=== PATIENT | female | born 1985 | race Caucasian/White ===

== ENCOUNTER 2020-07-19 09:10 | Inpatient (IN) | payer MEDICAID, SELFPAY ==
[2020-07-19] VITALS (17 sets, daily range): BP systolic 85–112; BP diastolic 32–90; PULSE 57–86; RESP 16–18; TEMP 36.1–37.1; O2SAT 95–100; BMI 36.2
[2020-07-19] MEDS: Lactated Ringers 1,000 ML 999 ML IV (10:15)
[2020-07-19] MEDS: Acetaminophen 500 MG Tablet 1000 MG PO ×3 (10:19→22:32)
[2020-07-19 10:30] LABS: Amphetamine Urine VISTA NEGATIVE (<1000 ng/mL); Barbiturate Urine VISTA NEGATIVE (< 200 ng/mL); Benzodiazepine Urine VISTA NEGATIVE (< 200 ng/mL); Cocaine Urine VISTA NEGATIVE (< 300 ng/mL); Ecstacy Urine VISTA NEGATIVE (< 500 ng/mL); Methadone Urine VISTA NEGATIVE (< 300 ng/mL); PCP Urine VISTA NEGATIVE (< 25 ng/mL); THC Urine VISTA NEGATIVE (< 50 ng/mL); Vista UDS pH Range 6
[2020-07-19 10:38] LABS: Absolute Neutrophil Count 5.8 X10^3/uL (2.0-7.7); Basophil# 0.03 X10^3/uL; Basophil% 0.3 % (0-1); Eosinophil# 0.14 X10^3/uL; Eosinophils% 1.4 % (0-5); Hematocrit 35.4 % (37-47); Hemoglobin 11.5 g/dL (12.0-15.0); Lymphocyte % 32.9 % (19-41); Mean Corp Hgb Conc 32.5 g/dL (32-36); Mean Corpuscular Hgb 29.3 pg (27.0-32.0); Mean Corpuscular Volume 90.3 fL (81-99); Mean Platelet Vol. 10.2 fl (6.2-12.0); Monocyte# 0.73 X10^3/uL; Monocyte% 7.3 % (0-10); NRBC Flagged by Analyzer 0 % (0-5); Neutrophil # 5.78 X10^3/uL (2.7-7.7); Neutrophil % 57.7 % (47-70); Platelet Count 167 K/mm3 (150-450); RBC Distribution Width CV 13.5 % (11.6-14.6); Red Blood Count 3.92 M/mm3 (4.2-5.4)
[2020-07-19 10:40] LABS: Bedside Glucose 98 mg/dL (70-110)
[2020-07-19] MEDS: Lactated Ringers 1,000 ML 500 ML IV (11:23)
[2020-07-19] MEDS: Sodium Citrate/Citric Acid 30 ML UDC PO (11:50)
[2020-07-19] MEDS: Cefazolin 2 GM in 0.9% Normal Saline 100 ML IV (11:50)
--- NOTE | 2020-07-19 12:05 | HP.PCM_ITS ---
History Date of Admission: 07/19/20 Final RYLEY: 08/09/20 Final RYLEY Source: US <20 weeks Gestational age: 37 Weeks and 0 Days History of this : This is a 34 year-old, presents for repeat c/s. Patient's has been complicated by substance abuse disorder, she is currently in a treatment program. In addition, she has a history of 2 previous sections. 1 of them was a 29-week section for a second twin that was confirmed to be a classical incision. He is also been diagnosed as hepatitis C positive. Patient states she has a history of placental abruption with 1 of her last pregnancies. She also states she has a history of preeclampsia with a previous . She has been smoking during the . She was recently diagnosed with diet-controlled gestational diabetes, but took her 3-hour Glucola very late. She may have had unmonitored gestational diabetes earlier in the .. Allergies No Known Allergies Allergy (Verified 07/19/20 09:40) Home Medications: Home Medications Pnv No.95/Ferrous Fum/Folic AC [ Caplet] 1 ea PO 07/19/20 Smoking Status: Current every day smoker Substance Use Type: Amphetamines Number of Fetus(es): 1 History Past Pregnancies: Past Pregnancies Delivery Date Name GA/ Weeks Outcome Route Wt Infant Sex Labor Length Anesthesia Delivery Location Provider FOB Expected Infant Delivery Method: Scheduled Section Review of Systems Constitutional: Denies: Chills, Fever Eyes: Denies: Blurred vision Cardiovascular: Denies: Chest Pain Respiratory: Denies: Cough Genitourinary: Denies: Dysuria Skin: Denies: Rash Hematologic/ Lymphatic: Denies: Easy Bruising, Easy Bleeding Physical Exam Vitals: Vital Signs Temp Pulse Resp BP Pulse Ox 98.5 F 81 16 108/50 L 95 07/19/20 11:03 07/19/20 11:03 07/19/20 11:03 07/19/20 11:03 07/19/20 11:03 General: Alert, Cooperative, No apparent distress Cardiovascular: Regular rate Lungs: Normal air movement Abdomen: Soft, Non Tender, Non-Distended, Gravid, Appropriate for Gestational Age Extremities:: Other - 2+ edema Neurological: Neuro grossly intact, Slurred Speech MARINE SERVICES TECHNICIAN: Normal external genitalia Estimated gestational size: Appropriate for gestational size Presentation: Cephalic Assessment/Plan This is a 34 year-old, 34-year-old high risk multigravida female for repeat section and bilateral salpingectomy. Risk benefits and alternatives to repeat section at 37 weeks and been discussed with patient, her questions were answered her satisfaction she desires to proceed. She does not desire future fertility and has requested a sterilization. Risk benefits and alternatives to this including permanency irreversibility and risk of failure and regret were discussed with patient, her questions were answered to her satisfaction she desired to proceed. Patient has multiple social issues, and has been in a treatment program for substance abuse disorder. Also known to be hepatitis C positive. Unmonitored gestational diabetes, diet controlled.
--- NOTE | 2020-07-19 12:23 | FALS_PTH ---
PATIENT: EROS LYNN LOC: [facility] U#:[id number] AGE/SX: 34/F ROOM: WP005 RE07/19/[address]: Dr. Iram Casper MD : [id number] BED: 1 DIS: 07/21/2020 SPEC #: [id number] RECD: 07/20/20 08:57 STATUS: LOLLY REMelissa #: [id number] JERILYN: 07/19/20 12:[address]: Iram Casper DEPT: SURGICAL PATHOLOGY RECD BY: Cody Aceves ENTERED: 07/20/20 08:58 SP TYPE: FALL TUBES OTHR DR: No Primary Care Phys Tissues: Fallopian tube Procedures: Surgery Specimen Level II HEADER OPERATION: Tubal ligation PRE-OP DIAGNOSIS: Sterilization TISSUE SUBMITTED: Fallopian tubes, suture in right tube MICROSCOPIC DIAGNOSIS Bilateral fallopian tubes, salpingectomy: Bilateral fallopian tubes including fimbrial ends, no pathologic diagnosis. BLUE:toney 07/21/20 MICROSCOPIC DESCRIPTION Slides are reviewed. GROSS DESCRIPTION Received in fixative is one container labeled with the patient's name and designated bilateral fallopian tubes, suture in right fallopian tube. The specimen consists of bilateral fallopian tubes including fimbrial ends. The right fallopian tube measures 6 cm in length and up to 1 cm in diameter. The left fallopian tube measures 4 cm in length and up to 1 cm in diameter. Sections reveal unremarkable cut surfaces. Also present in the container is a detached separate piece of fallopian tube measuring 1 cm in length and 0.7 cm in diameter. Pinion And Wheel Truer sections are submitted in two cassettes as follows: 1 - right fallopian tube, 2 - left fallopian tube and detached piece of fallopian tube. / SJ:toney 07/20/20 TC:4 CPT: 68563 x2
--- NOTE | 2020-07-19 12:59 | PCM.OPRPT ---
Delivery Classification: Scheduled Final RYLEY: 08/09/20 Final RYLEY Source: US <20 weeks Gestational age: 37 Weeks and 0 Days plant operator control room operator: Tyson Rush Type of Anesthesia:: Spinal Special Medications: duramorph Implants Used: none Date of Procedure: 07/19/20 Pre-Operative Diagnosis: previous classical c/s, 37 weeks, sterilization request Post-Operative Diagnosis: same Indications for : Repeat Elective , Desires elective sterilization Description of Procedure: The patient was taken to the operating room. She was prepped and draped in the dorsal supine position with a leftward tilt. A Pfannenstiel skin incision was made approximately 2 cm above the symphysis pubis and carried through to underlying layer fascia with the scalpel. The fascia was incised incised in the midline and extended laterally with the Sommer scissors. The fascia was dissected off the rectus muscles with blunt and sharp dissection. The rectus muscles were in the midline and the peritoneum was entered bluntly. The peritoneal incision was stretched and the bladder blade was placed. The uterine incision was made in a low transverse fashion with the scalpel and extended superiorly and inferiorly with blunt dissection. The amniotic membranes were ruptured bluntly and clear amniotic fluid returned. The infant's head was brought to the incision in the flexed position and delivered without difficulty. The remainder of the was delivered with gentle traction and fundal pressure in the standard fashion. The mouth and nares were bulb suctioned. The cord was clamped and cut as the infant was stimulated. Cord clamping was delayed. The infant was handed off to the waiting nursing staff. The placenta was delivered with fundal massage and gentle traction in the standard fashion. The uterus was exteriorized and cleared of all clots and debris. The cervix was dilated with a ring forcep. Was a small extension of the uterine incision in the midline down towards the cervix. This was approximately 2 cm. You can tell there was a defect in her uterus from her previous classical section. The bladder flap was then dissected down with Metzenbaum scissors and sharp dissection. The uterine incision was closed with #1 Vicryl in a running locked fashion. Several [id number]'s of the same suture were used to close the defect and to obtain hemostasis. The incision was examined and was found to be hemostatic. The uterus was placed back into the peritoneal cavity and hemostasis was again confirmed. The right fallopian tube was identified and followed out to the fimbriated end. The LigaSure device was then used to clamp, seal and transect the antimesenteric portion of the tube to the cornual insertion of the tube. The tube was amputated from the uterus with the LigaSure device. Hemostasis of the pedicles was assured. The same procedure was performed on the contralateral side. Uterine incision was once more examined and found to be hemostatic. Some Dipak was placed over the uterine incision. The rectus muscles were examined and any bleeding was Bovie cauterized. The parietal peritoneum and rectus muscles were closed en bloc with an 0 Vicryl running suture. The surgical teams outer gloves were then changed. The rectus fascia was examined and any bleeding was Bovie cauterized and the rectus fascia was closed with 0 PDS suture in a running standard fashion. The subcutaneous tissue was examining and any bleeding was Bovie cauterized. The subcutaneous tissue was reapproximated with 3-0 Vicryl suture. The skin was closed in a subcuticular fashion by the MOTION STUDY ENGINEER with me present in the labor and delivery suite. I performed the remainder of the procedure with assistance. All sponge, lap, and needle counts were correct. The patient was taken to her room for recovery in a stable condition. Amniotic Membrane Rupture Type: Artificial Amniotic Fluid Description: Clear Placenta Disposition: [facility] Drain: Arroyo to straight drain Cord Entanglement: None Cord Vessel Description: 3 Vessels Esitmated Blood Loss (ml): 800 Gender: Female (1 minute): 8 (5 minute): 9 Antibiotic Given: Ancef 2 grams IV x1 Complications: None - Admit VTE Documentation VTE Present on Admission: No VTE Mechan Device Prophylaxis: SCD's VTE Pharm Prophylaxis ordered?: Yes
[2020-07-19] MEDS: Oxytocin 30 units/NS 500 ml 30 UNITS/500 ML IV.SOLN 167 UNITS IV (13:25)
[2020-07-19 15:49] LABS: Pathology Specimen OB SEE PATHOLOGY REPORT
[2020-07-19] MEDS: Lactated Ringers 1,000 ML 100 ML IV (16:25)
--- NOTE | 2020-07-19 17:22 | CASEMGMT ---
Social Work Updated by nursing team on social work referral for Mother of baby (MOB) with history of substance abuse. Per nursing staff patient does not have custody of other children. Nursing staff also reporting that patient is currently in a substance abuse treatment program. Per chart review patient with Meth use in 1st trimester. Patient also with late care (15weeks). Social Work was notified by Bell, with [facility] to be following patient and requesting to be notified when was delivered. Telephone call to amalia Luu left with information to contact social economist on unit. Social Work will continue to follow to complete full assessment and make referrals as indicated. Hans BARRAGAN, BARNDYN
[2020-07-19] MEDS: Ketorolac 30 MG/ML Syringe IV ×2 (17:55→23:57)
[2020-07-19] MEDS: 0.9% Saline Lock 10 ML Syringe IV (23:57)
[2020-07-20] MEDS: Acetaminophen 500 MG Tablet 1000 MG PO ×3 (04:36→17:51)
[2020-07-20 04:40] VITALS: BP 101/55; PULSE 72; RESP 16; TEMP 36.8; O2SAT 97
[2020-07-20 05:16] LABS: Hemoglobin 10.8 g/dL (12.0-15.0); Mean Corp Hgb Conc 32.7 g/dL (32-36); Mean Corpuscular Hgb 29.5 pg (27.0-32.0); Mean Corpuscular Volume 90.2 fL (81-99); Platelet Count 142 K/mm3 (150-450); RBC Distribution Width CV 13.2 % (11.6-14.6); RBC Distribution Width SD 43.2 fl (35.1-43.9); Red Blood Count 3.66 M/mm3 (4.2-5.4); White Blood Count 10.8 K/mm3 (4.4-11.0)
[2020-07-20 05:36] LABS: Bedside Glucose 125 mg/dL (70-110)
[2020-07-20] MEDS: Ketorolac 30 MG/ML Syringe IV ×2 (05:49→12:17)
[2020-07-20] MEDS: 0.9% Saline Lock 10 ML Syringe IV ×2 (05:50→12:17)
--- NOTE | 2020-07-20 05:51 | PN.OBGYN_ITS ---
Subjective: pain well controlled, average lochia. No N/V - Physical Exam Vitals/I&O's: Vital Signs Temp Pulse Resp BP Pulse Ox 98.2 F 72 16 101/55 L 97 07/20/20 04:40 07/20/20 04:40 07/20/20 04:40 07/20/20 04:40 07/20/20 04:40 Oxygen Delivery Method Room Air Weight: 108.2 kg Body Mass Index (BMI) 36.2 Intake and Output for Last 24 Hours 07/18/20 07/19/20 07/20/20 23:59 23:59 23:59 Intake Total 4060 / 4060 1000 / 1000 Output Total 600 / 600 400 / 400 Balance 3460 / 3460 600 / 600 General: Alert, Cooperative, No apparent distress Abdomen: Soft, Non-Distended, Tender - mildly Extremities: Edema - 1= Skin: Incision - bandage is clean, dry and intact Laboratory Results 07/19/20 09:55: Urine Opiates Screen NEGATIVE, Urine Methadone Screen NEGATIVE, Ur Barbiturates Screen NEGATIVE, Ur Phencyclidine Scrn NEGATIVE, Ur Amphetamines Screen NEGATIVE, U Methamphetamin-MDMA NEGATIVE, U Benzodiazepines Scrn NEGATIVE, Urine Cocaine Screen NEGATIVE, U Cannabinoids Screen NEGATIVE, Ur Drug Screen Comment 07/19/20 10:15: WBC 10.0, RBC 3.92 L, Hgb 11.5 L, Hct 35.4 L, MCV 90.3, MCH 29.3, MCHC 32.5, RDW Std Deviation 44.0 H, RDW Coeff of Judy 13.5, Plt Count 167, MPV 10.2, Immature Gran % (Auto) 0.400, Neut % (Auto) 57.7, Lymph % (Auto) 32.9, Yolo % (Auto) 7.3, Eos % (Auto) 1.4, Baso % (Auto) 0.3, Absolute Neuts (auto) 5.8, Absolute Lymphs (auto) 3.30, Nucleated RBC % 0 07/19/20 10:15: Blood Type O POSITIVE, Antibody Screen NEGATIVE 07/19/20 10:29: POC Glucose 98 07/20/20 05:11: WBC 10.8, RBC 3.66 L, Hgb 10.8 L, Hct 33.0 L, MCV 90.2, MCH 29.5, MCHC 32.7, RDW Std Deviation 43.2, RDW Coeff of Judy 13.2, Plt Count 142 L, MPV 10.0 07/20/20 05:23: POC Glucose 125 H Current Medications Acetaminophen (Tylenol) 1,000 mg PO Q6H [facility] Last Admin: 07/20/20 04:36 Dose: 1,000 mg Documented by: Bisacodyl (Dulcolax) 10 mg RECTAL UD PRN PRN Reason: If no BM Diphenhydramine HCl (Benadryl) 25 mg PO Q6H PRN PRN PRN Reason: ITCHING Stop: 07/20/20 13:05 Enoxaparin Sodium (Lovenox) 40 mg SC DAILY [facility] Hydrocortisone (Hytone) 1 applic TOPICAL TID PRN PRN; Protocol PRN Reason: Discomfort Naloxone HCl 4 mg/ Dextrose 504 mls @ 0 mls/hr IV .Q0M PRN; Protocol PRN Reason: To maintain Resp. rate >10 Lactated Ringer's () 1,000 mls @ 100 mls/hr IV .Q10H [facility] Last Infusion: 07/20/20 04:36 Dose: Infused Documented by: Ketorolac Tromethamine (Toradol (Bkc)) 30 mg IV Q6 [facility] Stop: 07/20/20 12:01 Last Admin: 07/20/20 05:49 Dose: 30 mg Documented by: Methylergonovine Maleate (Methergine) 0.2 mg IM X1 PRN PRN Reason: Uterine Atony Naloxone HCl (Narcan) 0.02 mg IV Q1M PRN PRN Reason: RR< 10 AND PT UNRESPONSIVE Naproxen (Naprosyn) 500 mg PO Q8H [facility] Ondansetron HCl (Zofran) 4 mg IV Q4H PRN PRN PRN Reason: Nausea Prochlorperazine Edisylate (Compazine Iv) 10 mg IV Q6H PRN PRN PRN Reason: NAUSEA Senna/Docusate Sodium (Senokot-S, Myra-Colace) 0 tablet PO DAILY [facility] Simethicone (Mylicon) 80 mg PO PCHS PRN PRN Reason: Indigestion/stomach pain Sodium Chloride () 5 - 15 ml IV UD PRN PRN Reason: SALINE FLUSH Last Admin: 07/20/20 05:50 Dose: 10 ml Documented by: Medical Necessity - Tobacco Use Smoking Status: Current every day smoker Assessment/Plan POD#1 s/p repeat c/s and bilateral salpingectomy is and doing well routine care
[2020-07-20 09:10] VITALS: BP 100/55; PULSE 59; RESP 14; TEMP 36.5
[2020-07-20] MEDS: Enoxaparin 40 MG/0.4 ML Syringe SC (11:20)
[2020-07-20] MEDS: Senna/Docusate Sodium 1 Tablet PO (11:20)
[2020-07-20 12:55] VITALS: BP 101/45; PULSE 68; RESP 14; TEMP 36.7
--- NOTE | 2020-07-20 15:15 | CASEMGMT ---
Social Work Assessment Labor and Delivery Unit Patient Address: [address] [place] [address]. [address] [place] [id number] Phone number: [phone]; [phone] Date of Referral: 07/19/2020 Time of Referral: 1017 Referred By: Dr. Iram Casper Date of Intervention: 07/20/2020 Time of Intervention: 1515 Reason for Referral: Maternal history of drug abuse; and treatment program History obtained from: Medical records and mother of baby (MOB) Thu Pardo Household composition: ARIANNA reports to live in her own apartment, since May 2020. MOB plans to take infant to this home. Patient's parent/guardian status: ARIANNA is a 34-year-old single female. Father of baby (FOB) is reported to be a Cole Russell, date of 08-15-1989. FOB was present for delivery of baby, but is currently residing in a community controlled nursing home house. No reports of any domestic violence issues with FOB. MOB and FOB are reported as together and involved. ARIANNA has 6 living children (one ), now after delivery of baby. Per medical record minor children were born in 12/04/2007, 12/20/2008, 01/15/2012, 11/18/2017, 05/05/2018 (Renetta), and baby Kylah Russell who was born on 07/19/2020. MOB reports that all of her children with the exception of Kylah were removed from [facility] from the hospital. ARIANNA admits to active drug use with each of her prior pregnancies. MOB reports all children were born in [place] with the exception of Renetta and Kylah. Medical History: ARIANNA with 6 pregnancies and 6 deliveries. One delivery included a set of twins, 2016, with with one child expiring after . living. Per care record these twins were born at 21 weeks gestation. MOB reports history of placental abruption with a prior . For this care started at 15 weeks gestation. ARIANNA did present to [facility] in [place], around 13 weeks and had an ultrasound. ARIANNA has a history of gestational diabetes, hepatitis C, and preeclampsia. Kylah was born weighing 7 pounds 4 ounces. Apgars 8 and 9 at 1 and 5 minutes of life. Delivery via repeat . Educational Status: ARIANNA graduated from high school, and per record has some college classes completed. MOB is able to read, write, and understand what is read. Financial Status: Specifics about financial situation not discussed. MOB endorses assistance from community agencies. Supplies: MOB reports to have all needed supplies to get started to take care of this baby. MOB reports to have a crib, pack and play, car seat, clothing, diapers, and wipes. At this time MOB is planning on breast-feeding baby. Childcare/Caregiver(s): MOB plans to be primary caregiver of this baby. Transportation: MOB does not currently have her license. Reports to rely on local J[employer], and insurance, for transportation. Programs/Agencies Involved: ARIANNA is connected with her local job and family services for medical and food. Reports to be working with [employer] me [employer]. Reports to be working with a adult protective caseworker out of [facility] program. Reports to be active with [facility] for both individual counseling and intensive outpatient program 3 times a week. MOB reports to be on the wait list for parenting classes through [facility]. MOB reports to have [facility]. Children Services/Legal Issues: No disclosure of medical history. MOB reports history of children services for her other children. Reports [facility] children services involvement after Renetta was born, which eventually resulted in loss of custody. MOB denies any active case with any children services agency. Behavioral Health Issues: Mental Health History: It is reported that ARIANNA has a history of depression, anxiety, and depression. Chart indicates ARIANNA has history of taking Seroquel when not . Per care record, Lexapro and Vistaril were discussed as possibilities during the . During this assessment MOB denies use of any type of medication for her mental health during this . Chart indicates a history of 3 past suicide attempts. And history of homicidal ideations in the past which were drug-induced. Substance Use History: It is reported that ARIANNA has a substance use history for the last 13 years. MOB drug of choice is reported to be methamphetamines and gabapentin. It is reported however ARIANNA has a history of using heroin, cocaine, and other opiates. It is reported ARIANNA used Suboxone during her last in 2017. MOB reports to this senior medical writer she overdosed on opiates, in September 2019, and since that time has had no desire for any type of opiate usage. MOB reports she received opiate medication during Kylah's delivery, which MOB reports was not what she wanted for her delivery plan, and expresses worry now this will show up in the baby's drug screen. It is reported that ARIANNA used methamphetamines twice prior to seeking care and also used gabapentin. ARIANNA reports her sober date is 02/04/2020. ARIANNA reports she entered [facility] in [place] during this . Reports state only for short time due to various issues with other women at the home. ARIANNA reports she signed herself out, and got herself enrolled at [facility]. MOB reports believe has been doing well with this outpatient treatment program, ARIANNA reports has been in other rehab programs in the past. Family History: Record indicates MOB mother has a history of depression. Record indicates MOB father, sister, and a brother have substance use issues. Drug Screens: ARIANNA with a negative drug screen on 02/18/2020. No retesting noted until time of delivery on 07/19/2020, which was negative. Infant's urine drug screen is negative, meconium is pending. ENZO: ENZO testing not performed as no endorsement of any opiate usage during this , nor any positive drug screen drug screens indicating such. Family/Social Stressors: ARIANNA with active drug use in the first trimester, but did seek out treatment and reports a sober date of 02/04/2020. From record it appears ARIANNA left the [facility], and went to a homeless half-way where MOB was connected with a adult protective caseworker. ARIANNA has now been in her own home since May. Limited involvement by DK, who is in a community controlled nursing home house, although FOB was at the hospital for delivery. Maternal history of mental health, not currently treated with medication, although ARIANNA reports counseling and such has been working fine. MOB expressing distress at this time with the knowledge that children services is to be called. Limited support system appearing to be in place via family and friends, although MOB reports good support from engagement with community social service agencies, and sober supports. Support Systems: It is reported that DK is a support and was present on day of delivery to help with the baby. MOB reports to have a sober support. Reports to have counseling and case management. Depression/Shaken Baby/Safe Sleeping information will be provided prior to discharge. ASSESSMENT: Met with MOB in room and introduced to self and social work role. MOB holding the baby for the duration of social work visit, until nursing came in to do the baby's 24-hour testing. MOB cooperative with answering social work's questions. MOB reports to have needed supplies for the baby, reports has been actively working on recovery since sober date February 03, and reports intent and desire to be able to take this baby home; to parent the baby at home. Discussed with MOB need to call children services, and that intrauterine exposure to substances necessitates a referral. Did let MOB now this senior medical writer had a message from children services. Educated MOB that as both MOB and baby negative at time of delivery, uncertain what level of intervention children services would take. MOB voiced frustration, and belief that children services will remove the infant from MOB's custody as this has been the pattern with MOB's other children. MOB voicing frustration that has worked hard on sobriety, so that a removal of infant and children services involvement is unnecessary. Supportive listening provided to MOB, emotional support offered, and also discussed with MOB coping skills can use when feeling upset or overwhelmed. MOB with anxious mood, tense body posture at times, and constricted affect. MOB tearful when discussing impending children services involvement. MOB be voiced frustration and disagreement with the fact that social social and political studies professor to call children services. Near end of conversation, MOB less tearful, and apologized to this senior medical writer for MOB initial reaction, for being rude, when finding out children services to be called. Safe Plan of Care for related to substance use: MOB reports plan to continue with counseling, IOP, and using sob support system. PLAN: Plan to follow-up with MOB, to keep updated as MOB voices desire to know children services plans to come to the hospital. Plan to call [facility] children services regarding substance exposed infant as reported in the medical records. Plan to follow-up with mother of baby to provide community resource information, and have further discussion about depression. No other services requested or indicated. -SHAHZAD Armenta, YUNG *Information documented in this assessment generated with [employer] System*
--- NOTE | 2020-07-20 15:40 | CASEMGMT ---
Social Work Labor and Delivery Unit Reason for intervention: Referral to [facility] children services ([facility]), Kiley Petersen at [phone]. Summary: Phone call to [facility], and spoke with Kiley. Referral given due to reported intrauterine drug exposure to baby, prior to start of care. Reported exposure of methamphetamines and gabapentin. Brief maternal and infant histories provided. Reported concern regarding mother of baby not having custody of any of her older children, and prior involvement with [facility] asked for last child. Reported negative drug screens on record for both mother of baby and . Reported limited. Support system from family, and father of baby currently in a committed controlled care home house. Reported strengths including agencies that mother of baby has indicated to be involved with. This loan underwriter requested notification if the worker plans to come to the hospital to see mother of baby. Assessment: Referral to children services has been made and from conversation with said agency anticipate a case to be opened for an intake investigation. Plan: We will plan to follow-up with mother of baby after hearing from children services. No other services requested or indicated. -SHAHZAD Armenta, YUNG *Information documented in this note generated via [employer] system*
--- NOTE | 2020-07-20 16:30 | CASEMGMT ---
Social Work Labor and Delivery Unit Reason for intervention: Update to mother of baby (MOB) Summary: Received phone call from Kiley at [facility] ([facility] Per Dee Cao will be coming to see MOB in the morning hours of 07/21/2020. Children services agency is going to look at feasibility of a safety plan versus other alternatives. Met with MOB briefly, and updated that [facility] will be to unit on 07/21/2020 to talk with MOB. MOB accepted him from this information without issue. Thanks this filing writer for the update. Assessment: MOB be cooperative and calm during short visit with this filing writer. MOB attending today be well clinical social worker in the room. MOB did voice desire to be able to take the baby home with her. Plan: [facility] has plans to see MOB at hospital on 07/21/2020. Hospital social work to continue to follow and assist, with plans to provide MOB with home-going resources prior to discharge. Updated supervisor color paste mixing to plan to children services involvement. No other services requested or indicated. -SHAHZAD Armenta, MANAGER PHOTOGRAPHY *Information documented in this note generated via [employer] system*
[2020-07-20 16:45] VITALS: BP 113/44; PULSE 82; RESP 14; TEMP 37.1
[2020-07-20] MEDS: Naproxen 250 MG Tablet 500 MG PO (17:51)
[2020-07-20 20:55] VITALS: BP 99/48; PULSE 74; RESP 16; TEMP 36.9; O2SAT 97
--- NOTE | 2020-07-21 00:13 | NURSING ---
Patient requested formula as she feels her infant is not getting enough. latches well. Reassured patient. Patient reports infant being fussy throughout night. Patient requested pump as she feels it will help bring her milk in. Educated patient on colostrum and reviewed the option of hand expression. Patient still wanted to pump. Patient pumped, but was not able to pump any milk out. Patient then asked for formula. Reviewed benefits of . Huddle form completed.
--- NOTE | 2020-07-21 00:18 | NURSING ---
Formula provided to patient. Patient's new feeding plan is to pump and give any milk she pumps through a bottle. If patient is unable to pump milk, she will feed the infant formula. Reviewed alternative forms of feeding formula instead of a bottle, but patient chooses to feed infant with a bottle at this time.
[2020-07-21] MEDS: Acetaminophen 500 MG Tablet 1000 MG PO ×2 (01:07→07:22)
[2020-07-21] MEDS: Naproxen 250 MG Tablet 500 MG PO ×2 (02:22→09:14)
[2020-07-21 02:23] VITALS: BP 109/55; PULSE 67; RESP 18; TEMP 36.7
--- NOTE | 2020-07-21 07:18 | PN.OBGYN_ITS ---
Subjective: Patient seen at bedside. Resting comfortably. Pain is controlled with Tylenol and Motrin. Ambulating and passing flatus. Both breast and bottle feeding infant. Desires discharge home today. Objective: Dressing is dry and intact - Physical Exam Vitals/I&O's: Vital Signs Temp Pulse Resp BP Pulse Ox 98.1 F 67 18 109/55 L 97 07/21/20 02:23 07/21/20 02:23 07/21/20 02:23 07/21/20 02:23 07/20/20 20:55 Oxygen Delivery Method Room Air Weight: 238 lb 8.642 oz Body Mass Index (BMI) 36.2 Intake and Output for Last 24 Hours 07/19/20 07/20/20 07/21/20 23:59 23:59 23:59 Intake Total 4060 / 4060 1000 / 1000 Output Total 600 / 600 400 / 400 Balance 3460 / 3460 600 / 600 General: Alert, Oriented x3, Cooperative Oral: Moist Mucosa Lungs: Normal air movement Cardiovascular: Regular rate Abdomen: Soft, Non Tender Extremities: No edema Skin: No rashes Musculoskeletal: No Tenderness to Palpation of Joints or Extremities Neurological: Cranial nerves II-XII grossly intact Psych/Mental Status: Normal Affect Current Medications Acetaminophen (Tylenol) 1,000 mg PO Q6H COUNT INCLUDES THE [facility] Last Admin: 07/21/20 01:07 Dose: 1,000 mg Documented by: Bisacodyl (Dulcolax) 10 mg RECTAL UD PRN PRN Reason: If no BM Enoxaparin Sodium (Lovenox) 40 mg SC DAILY COUNT INCLUDES THE [facility] Last Admin: 07/20/20 11:20 Dose: 40 mg Documented by: Hydrocortisone (Hytone) 1 applic TOPICAL TID PRN PRN; Protocol PRN Reason: Discomfort Naloxone HCl 4 mg/ Dextrose 504 mls @ 0 mls/hr IV .Q0M PRN; Protocol PRN Reason: To maintain Resp. rate >10 Methylergonovine Maleate (Methergine) 0.2 mg IM X1 PRN PRN Reason: Uterine Atony Naloxone HCl (Narcan) 0.02 mg IV Q1M PRN PRN Reason: RR< 10 AND PT UNRESPONSIVE Naproxen (Naprosyn) 500 mg PO Q8H COUNT INCLUDES THE [facility] Last Admin: 07/21/20 02:22 Dose: 500 mg Documented by: Ondansetron HCl (Zofran) 4 mg IV Q4H PRN PRN PRN Reason: Nausea Prochlorperazine Edisylate (Compazine Iv) 10 mg IV Q6H PRN PRN PRN Reason: NAUSEA Senna/Docusate Sodium (Senokot-S, Myra-Colace) 0 tablet PO DAILY JENS[facility] Last Admin: 07/20/20 11:20 Dose: 1 tablet Documented by: Simethicone (Mylicon) 80 mg PO [facility] PRN PRN Reason: Indigestion/stomach pain Sodium Chloride () 5 - 15 ml IV UD PRN PRN Reason: SALINE FLUSH Last Admin: 07/20/20 12:17 Dose: 10 ml Documented by: Medical Necessity - Tobacco Use Smoking Status: Current every day smoker Assessment/Plan A/P Post operative repeat c/s Pain controlled Routine care Discharge home
--- NOTE | 2020-07-21 07:25 | DCINST_ITS ---
Discharge Diet: No Restrictions Additional Instructions: If you experience any of the following, contact your healthcare provider. * Bleeding that soaks a pad every hour for 2 hours * Fever 100.4 or higher * Unrelieved incision or abdominal pain * Swelling, redness, discharge or bleeding from your incision or episi otomy site * Your incision begins to separate * Problems urinating (including inability to urinate or burning while urinating). * Visual changes * Severe headache * Flu-like symptoms * Pain or redness in one of both of your breasts * Pain, warmth, tenderness or swelling in your legs, especially the calf area * Frequent nausea and vomiting * Symptoms of depression or anxiety If you experience any of the following, call 911 or go to the nearest Emergency Room. * Chest pain * Problems breathing * Seizure activity * Partial or complete paralysis of a body part, slurred speech, weakness or drooping of the face, or a sudden inability to walk or hold your balance Allergies/Adverse Reactions: Allergies No Known Allergies Allergy (Verified 07/19/20 09:40) Medications to take at Discharge Pnv No.95/Ferrous Fum/Folic AC [ Caplet] 1 ea PO 07/19/20 Follow-Up: Call to make an appointment with your doctor for an incision check in 1-2 weeks. You will also need a 6 week post- follow up appointment. Test results from this visit will be discussed in further detail at your follow- up appointment, if applicable. Primary Care Physician: Care Physician,No Primary [Primary Care Provider] -
--- NOTE | 2020-07-21 07:25 | PCM.DCCSEC ---
Discharge Diet: No Restrictions Additional Instructions: If you experience any of the following, contact your healthcare provider. Bleeding that soaks a pad every hour for 2 hours Fever 100.4 or higher Unrelieved incision or abdominal pain Swelling, redness, discharge or bleeding from your incision or episiotomy site Your incision begins to separate Problems urinating (including inability to urinate or burning while urinating). Visual changes Severe headache Flu-like symptoms Pain or redness in one of both of your breasts Pain, warmth, tenderness or swelling in your legs, especially the calf area Frequent nausea and vomiting Symptoms of depression or anxiety If you experience any of the following, call 911 or go to the nearest Emergency Room. Chest pain Problems breathing Seizure activity Partial or complete paralysis of a body part, slurred speech, weakness or drooping of the face, or a sudden inability to walk or hold your balance Allergies/Adverse Reactions: Allergies No Known Allergies Allergy (Verified 07/19/20 09:40) Medications to take at Discharge Pnv No.95/Ferrous Fum/Folic AC [ Caplet] 1 ea PO 07/19/20 Follow-Up: Call to make an appointment with your doctor for an incision check in 1-2 weeks. You will also need a 6 week post- follow up appointment. Test results from this visit will be discussed in further detail at your follow-up appointment, if applicable. Primary Care Physician: Care Physician,No Primary [Primary Care Provider] -
--- NOTE | 2020-07-21 07:26 | DS.PCM_ITS ---
Discharge Date and Diagnosis Date of Admission: 07/19/20 Date of Discharge: 07/21/20 Hospital Course and Treatment Summary of Care Provided: The patient is a 34 year old F status post repeat c/s with bilateral salpingectomy. Hospital course was uncomplicated. - Physical Exam Vitals/I&O's: Vital Signs Temp Pulse Resp BP Pulse Ox 98.1 F 67 18 109/55 L 97 07/21/20 02:23 07/21/20 02:23 07/21/20 02:23 07/21/20 02:23 07/20/20 20:55 Oxygen Delivery Method Room Air Weight: 238 lb 8.642 oz Body Mass Index (BMI) 36.2 Intake and Output for Last 24 Hours 07/19/20 07/20/20 07/21/20 23:59 23:59 23:59 Intake Total 4060 / 4060 1000 / 1000 Output Total 600 / 600 400 / 400 Balance 3460 / 3460 600 / 600 Current Medications Acetaminophen (Tylenol) 1,000 mg PO Q6H [facility] Last Admin: 07/21/20 07:22 Dose: 1,000 mg Documented by: Bisacodyl (Dulcolax) 10 mg RECTAL UD PRN PRN Reason: If no BM Enoxaparin Sodium (Lovenox) 40 mg SC DAILY [facility] Last Admin: 07/20/20 11:20 Dose: 40 mg Documented by: Hydrocortisone (Hytone) 1 applic TOPICAL TID PRN PRN; Protocol PRN Reason: Discomfort Naloxone HCl 4 mg/ Dextrose 504 mls @ 0 mls/hr IV .Q0M PRN; Protocol PRN Reason: To maintain Resp. rate >10 Methylergonovine Maleate (Methergine) 0.2 mg IM X1 PRN PRN Reason: Uterine Atony Naloxone HCl (Narcan) 0.02 mg IV Q1M PRN PRN Reason: RR< 10 AND PT UNRESPONSIVE Naproxen (Naprosyn) 500 mg PO Q8H [facility] Last Admin: 07/21/20 02:22 Dose: 500 mg Documented by: Ondansetron HCl (Zofran) 4 mg IV Q4H PRN PRN PRN Reason: Nausea Prochlorperazine Edisylate (Compazine Iv) 10 mg IV Q6H PRN PRN PRN Reason: NAUSEA Senna/Docusate Sodium (Senokot-S, Myra-Colace) 0 tablet PO DAILY [facility] Last Admin: 07/20/20 11:20 Dose: 1 tablet Documented by: Simethicone (Mylicon) 80 mg PO [facility] PRN PRN Reason: Indigestion/stomach pain Sodium Chloride () 5 - 15 ml IV UD PRN PRN Reason: SALINE FLUSH Last Admin: 07/20/20 12:17 Dose: 10 ml Documented by: Discharge Diet: No Restrictions Home Medications: Medications to take at Discharge Pnv No.95/Ferrous Fum/Folic AC [ Caplet] 1 ea PO 07/19/20 Primary Care Physician: Care Physician,No Primary [Primary Care Provider] - Medical Necessity - Tobacco Use Smoking Status: Current every day smoker Meaningful Use Info Meaningful Use Diagnoses (Choose all that apply): None applicable
[2020-07-21 09:08] VITALS: BP 92/41; PULSE 64; RESP 16; TEMP 37; O2SAT 97
[2020-07-21] MEDS: Senna/Docusate Sodium 1 Tablet PO (09:14)
[2020-07-21] MEDS: Enoxaparin 40 MG/0.4 ML Syringe SC (09:14)
[2020-07-21 13:23] VITALS: BP 130/86; PULSE 91; RESP 16; TEMP 36.8; O2SAT 100
--- NOTE | 2020-07-21 15:00 | NURSING ---
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 MMR offered and refused.
--- NOTE | 2020-07-21 16:00 | CASEMGMT ---
Social Work Labor and Delivery Unit Time of intervention: Multiple interventions occurring from approximately 0945 to throughout the day to about 1545. Reason for intervention: Collaboration with [facility] services ([facility]), communication with mother of baby (MOB) Thu Pardo, and nursing staff. Summary: Chart reviewed and noted that MOB is providing formula to baby. No noted concerns in chart regarding mother child interactions. Noted that both MOB and baby have discharge orders in. [facility] Dee Ferrer to unit to the unit in the morning hours, accompanied by coworker Joan Gonzalez. Updated children services workers planned discharge for MOB and baby this date. Updated to apparent change in feeding method for baby. No notation in chart regarding any concerns regarding parent child interactions. This sba underwriter asked for update after [facility] completed intervention with MOB. [facility] confirms plan to present option of a safety plan, of baby into paternal grandmother's home. This sba underwriter called into MOB's room by the MOB. MOB requesting to be able to stay in the hospital a couple of extra days. Children services still in the room. This sba underwriter attempted to explore as to reasoning behind extension of hospitalization. Educated that for C-sections typically the stay is between 48 to 72 hours, and uncertain if a 4-day stay medically necessary at this point. This sba underwriter agreed to speak with nursing for discussion with the VENEER MEASURER. Attempted to explore whether this request is in regards to formulating a safe discharge plan for the baby, as if this is the case then will also take this information to the angiography nurse. MOB indicated it would be very helpful to be able to stay 2 days, but knows this may be an unrealistic request. MOB voiced reasons why she believes she should stay an extra couple of days. This sba underwriter did speak with MOB nurse regarding request to stay additional days. MOB had conveyed to this sba underwriter wanting to stay in the hospital due to still having pain, MOB believing she is not bleeding as much as she should be bleeding post surgery, and still working on . Per conversation with RN, the MOB has indicated adequate pain control, had refused assistance earlier this date. Also per RN no abnormal postsurgical medical concerns have been indicated for this MOB. Children services out of MOB room. This sba underwriter updated by [employer] that MOB is refusing the offered safety plan of baby going to the paternal grandmother's home. Received another update from [employer] indicating that the agency, [facility], has made decision to file for custody of baby in fpc care hearing is today. In light of knowledge of a potential court hearing today, no further phone calls to the physicians for canceling the discharges. Met with MOB in room and presented resource list for [facility] social service agencies, as well as information on depression and anxiety. MOB talkative with this sba underwriter. MOB reports believe that [facility] has been lying to MOB about intentions for baby Kylah. MOB reports that she gave [facility] an alternative option for a safety plan. MOB reports was hoping an extended hospital stay could help with finding an alternative plan, other than the safety plan [facility] was presenting. During social work conversation, MOB took a phone call and reported to this sba underwriter need to take this call outside. This sba underwriter agreed to return later. This sba underwriter approached by [facility] as workers Kenneth indicating their water control supervisor aMrgie [phone] would like to speak to this sba underwriter. This sba underwriter called water control supervisor at [facility]. Per Margie the agency is filing for custody of the baby, and Margie will be the business services representative at court at which is being held at 215. Margie reports the alternative person and will be presented for safety plan is not an appropriate person. Margie with questions regarding the baby's health history which this sba underwriter answered. Provided Margie this sba underwriter's fax number to fax any court documents indicating change of custody. This sba underwriter alerted by nursing staff that MOB is back in room and requesting to speak to this sba underwriter. Presented to MOB room, and found MOB on the phone. MOB put caller on speaker phone, and this sba underwriter learned it was the water control supervisor from [facility]. MOB being updated by [facility] to plan for filing of custody of infant. This sba underwriter present in room for remainder of conversation, set silently while MOB asked questions of water control supervisor regarding reasoning behind filing, and timeframe of the filing and decision to seek custody. MOB requested to be present at court hearing and phone numbers were provided to MOB to call in for court hearing. After phone call children services MOB called her estate planning attorney and updated. MOB did express to this sba underwriter, that would be fine with the baby going to the paternal grandmother's home, but that had hoped the baby could remain with MOB. A female who identified self as Thu, who works for [employer], and is one of MOB's sober support people presented to the hospital to be a support to the MOB. This sba underwriter conferred with unit management regarding visitation policy and COVID pandemic in the community. In light of social issues occurring it was felt that MOB would benefit from having a support person. MOB has had no other support people other than the father of baby who left the unit after 24 hours to return to his long-term house. This sba underwriter checked with MOB, who was on the phone for the court hearing, passed a note to to MOB questioning whether MOB would like Thu present in the room. MOB agreed and thanked this sba underwriter. This sba underwriter helped facilitate Thu being able to enter the unit as MOB support person. This sba underwriter received phone call from children services indicating that children services of [facility] now has custody of this baby. A third children services worker presented to the unit with car seat. Worker is Charisma Akins. This sba underwriter verified agency ID and fuel truck driver's license. Charisma will be the worker transporting the baby to the next point of care. Copy of identification and court document this wrist sba underwriter received via fax placed on baby's chart. Met with MOB in room, sober support person Thu also present. Updated MOB that received court document. MOB reported awareness and belief that this would be the outcome. MOB expressed that unhappy with this decision, but that hoping in the end things will work out and be best for everyone. Discussed specifics of discharge with MOB, such as when the baby will go into care of children services. This sba underwriter assisted with facilitation between MOB, nursing staff, and children services worker for transfer of care to the children services worker. MOB's sober support person will be transporting MOB home. Assessment: During conversations with MOB this date, the MOB was polite and cooperative with this sba underwriter. MOB exhibited appropriate emotions to situation, such as crying when discussing separation from baby. This sba underwriter observed MOB attempting to advocate for self as evidenced by phone calls with attorneys and conveying concerns and questions to children services. During one private conversation with MOB, this sba underwriter encouraged MOB to continue with recovery process, and that now more than ever it is important to maintain connections established during . This sba underwriter explored MOB history of suicide attempts noted in the care record. MOB reports in the past, while living in [place], it was very difficult to get help for drugs and alcohol unless there is an acute mental health crisis at the same time. MOB indicated that prior reports of suicidality were in direct relation to MOB trying to seek support and help for drug addiction. MOB denies to this sba underwriter any thoughts, plans, intent, or action during this or even since delivery, including today. MOB does admit she felt her depression increasing at one point during but engaged with more community supports, which seemed to help the depression. MOB is future oriented, and focused on infant daughter. MOB reports past behaviors, when faced with difficulties was to run away. MOB reports standing up for herself with children services, and voicing concerns is a big step. At change of custody this date, MOB was accepting and gave no problem to staff. Intervention: Collaboration between children services, MOB, and nursing staff this date. Emotional support and supportive listening offered to MOB. This sba underwriter was able to provide MOB with a resource list for her home [place], as well as information on depression and anxiety. Written material was included for shaken baby prevention and safe sleeping in the resource packet. Placed children services identification and court documents on the baby's chart. Plan: MOB discharging to self, with a sober support person who works for [employer] present and transporting MOB home. Resources lists provided, and MOB is connected with [facility] social service agencies in her home area. Baby discharging to care of [facility] children services who now has custody of this baby. No other services requested or indicated, other than monitoring for meconium drug screen results of baby. -SHAHZAD Armenta, ASSET PROTECTION DETECTIVE *Information documented in this note generated via [employer] system*
== END 2020-07-21 15:30 | disposition home or self-care (01) | DRG 539 ==
PROVIDERS: Admitting Provider Obstetrics & Gynecology; Visit Provider Obstetrics & Gynecology
PROC: 10D00Z1 Extraction of Products of Conception, Low, Open Approach (ICD-10-PCS; CPT 59514; principal; 2020-07-19 11:45)
DX: O34.219 Maternal care for unspecified type scar from previous cesarean delivery (principal); O24.420 Gestational diabetes mellitus in childbirth, diet controlled; O98.42 Viral hepatitis complicating childbirth; B19.20 Unspecified viral hepatitis C without hepatic coma; O60.14X0 Preterm labor third trimester with preterm delivery third trimester, not applicable or unspecified; O99.334 Smoking (tobacco) complicating childbirth; F17.200 Nicotine dependence, unspecified, uncomplicated; O99.324 Drug use complicating childbirth; F19.10 Other psychoactive substance abuse, uncomplicated; Z30.2 Encounter for sterilization; Z37.0 Single live birth; Z3A.37 37 weeks gestation of pregnancy
CPT/HCPCS: 80307; 82962; 85025; 85027; 86850; 86900; 86901; 88302; 99218; 99251; J7120; A4216; G0378; G0463; J2405